=== PATIENT | female | born 1975 | race Two or more races ===

== ENCOUNTER 2017-11-18 20:23 | Emergency (ER) | payer SELFPAY ==
[2017-11-18 20:42] VITALS: BP 131/81
--- NOTE | 2017-11-18 20:56 | ER Document Report ---
ED General - General Chief Complaint: Cough Stated Complaint: COUGH Time Seen by Provider: 11/18/17 20:36 Notes: 42-year-old female presents emergency department stating that she was diagnosed with pneumonia on and started on azithromycin as well as albuterol breathing treatments every 6 hours. Patient states that despite these interventions she has had a persistent dry cough since then. Patient feels like she needs to cough something up but it is just not coming up. Denies posttussive emesis but admits to feeling nauseated after coughing. Denies fevers, denies chest pain, denies shortness of breath except when she gets into a coughing spell. Has not tried any cough suppressants but has tried guaifenesin. - Related Data Allergies/Adverse Reactions: codeine [Codeine] Allergy (Unknown, Verified 08/13/13 12:46) Past Medical History - General Information source: Patient - Social History Smoking Status: Never Smoker Chew tobacco use (# tins/day): No Frequency of alcohol use: Rare Drug Abuse: None Lives with: Family Family History: Reviewed & Not Pertinent Patient has suicidal ideation: No Patient has homicidal ideation: No - Past Medical History Cardiac Medical History: Reports: Hx Hypercholesterolemia, Hx Pulmonary Embolism Endocrine Medical History: Reports: Hx Hypothyroidism Renal/ Medical History: Reports: Hx Kidney Stones. Denies: Hx Peritoneal Dialysis Past Surgical History: Reports: Hx Section, Hx Gynecologic Surgery - lap for endometriosis - Immunizations Hx Diphtheria, Pertussis, Tetanus Vaccination: No Review of Systems - Review of Systems Constitutional: No symptoms reported EENT: No symptoms reported Cardiovascular: No symptoms reported Respiratory: See HPI Gastrointestinal: See HPI, Nausea -: Yes All other systems reviewed and negative Physical Exam - Vital signs Vitals: Temp Pulse Resp BP Pulse Ox 98.3 F 98 20 131/81 H 97 11/18/17 20:40 11/18/17 20:40 11/18/17 20:40 11/18/17 20:40 11/18/17 20:40 Interpretation: Normal - Notes Notes: GENERAL: Alert, interacts well. No acute distress. HEAD: Normocephalic, atraumatic EYES: Pupils equal, round and reactive to light, extraocular movements intact. ENT: Oral mucosa moist, tongue midline. NECK: Full range of motion, supple, trachea midline. LUNGS: Clear to auscultation bilaterally, no wheezes, rales or rhonchi, no respiratory distress. Dry cough HEART: Regular rate and rhythm, no murmurs, gallops, rubs. EXTREMITIES: Moves all 4 extremities spontaneously. No cyanosis. NEUROLOGICAL: Alert and oriented x3, normal speech. PSYCH: Normal mood, normal affect. SKIN: Warm, Dry, normal turgor, no rashes or lesions noted. Course - Re-evaluation Re-evalutation: 11/18/17 21:02 No chest pain, no posttussive emesis, already on appropriate antibiotics, already taking breathing treatments, no wheezing, no indication for steroids. Patient will be treated with Tessalon Perles and Hycodan syrup. Discharged home. - Vital Signs Vital signs: Temp Pulse Resp BP Pulse Ox 98.3 F 98 20 131/81 H 97 11/18/17 20:40 11/18/17 20:40 11/18/17 20:40 11/18/17 20:40 11/18/17 20:40 Discharge - Discharge Clinical Impression: Pneumonia Qualifiers: Pneumonia type: due to unspecified organism Laterality: unspecified laterality Lung location: unspecified part of lung Qualified Code(s): J18.9 - Pneumonia, unspecified organism Condition: Stable Disposition: HOME, SELF-CARE Additional Instructions: Please use the Tessalon Perles and the Hycodan syrup as directed. Please continue using the albuterol breathing treatments as directed. Please return to the emergency department for increasing cough, increasing fever or any new or concerning symptoms. Prescriptions: Hydrocodone Bit/Homatropine [Hycodan Syrup 5-1.5 mg/5 ml Ud Cup] 5 ml PO Q4HP PRN #120 ml PRN Reason: Benzonatate [Tessalon Perles 100 mg Capsule] 100 mg PO Q8HP PRN #40 capsule PRN Reason: Referrals: NALINI SINGH MD [ACTIVE STAFF] - Follow up as needed
== END 2017-11-18 21:05 | disposition home or self-care (01) ==
LOC: ER 20:23
DX: J18.9 Pneumonia, unspecified organism (principal); R05 Cough; R11.0 Nausea; Z88.5 Allergy status to narcotic agent; Z86.711 Personal history of pulmonary embolism
CPT/HCPCS: 99283

== ENCOUNTER → 2018-06-27 | Outpatient (CLI) | payer OTHER ==
--- NOTE | 2018-06-27 10:56 | RADIOLOGY REPORT (SQ) ---
EXAM DESCRIPTION: U/S SPINAL CANAL COMPLETED DATE/TIME: 06/27/2018 10:26 am REASON FOR STUDY: MASS OF SUBCUTANEOUS TISSUE R22.9 LOCALIZED SWELLING, MASS AND LUMP, UNSPECIFIED COMPARISON: None. TECHNIQUE: Dynamic and static grayscale images acquired of the localized site of clinical concern an d recorded on PACS. Additional selected color Doppler and spectral images recorded. SITE OF CONCERN: Left lower back. LIMITATIONS: None. FINDINGS: Heterogenous irregular complex fluid collection measuring 1.0 x 1.5 cm. IMPRESSION: IRREGULAR COMPLEX FLUID COLLECTION IN THE SOFT TISSUES. CONCERNING FOR INFECTIOUS PROCE SS AND POSSIBLE DEVELOPING ABSCESS. TECHNICAL DOCUMENTATION: JOB ID: [id number] [employer]- All Rights Reserved Reading location - IP/workstation name: [email or web address]
== END ==
LOC: RAD 09:19
PROVIDERS: ATTEND Physician Assistant
DX: R22.9 Localized swelling, mass and lump, unspecified (principal)
CPT/HCPCS: 76800

== ENCOUNTER 2018-10-24 05:11 | Inpatient (IN) | payer OTHER ==
[2018-10-17 11:51] LABS: HEMOGLOBIN 13.3 g/dL (12.0-15.5); MEAN CORPUSCULAR HEMOGLOBIN 30.6 pg (27.0-33.4); MEAN CORPUSCULAR VOLUME 87 fl (80-97); PLATELET COUNT 392 10^3/uL (150-450); RED BLOOD COUNT 4.35 10^6/uL (3.72-5.28); RED CELL DISTRIBUTION WIDTH 13.6 % (11.5-14.0)
--- NOTE | 2018-10-17 12:12 | RADIOLOGY REPORT (SQ) ---
EXAM DESCRIPTION: CHEST PA/LATERAL COMPLETED DATE/TIME: 10/17/2018 11:55 am REASON FOR STUDY: PRE-OP COMPARISON: None. EXAM PARAMETERS: NUMBER OF VIEWS: two views TECHNIQUE: Digital Frontal and Lateral radiographic views of the chest acquired. RADIATION DOSE: NA LIMITATIONS: none FINDINGS: LUNGS AND PLEURA: No opacities, masses or pneumothorax. No pleural effusion. MEDIASTINUM AND HILAR STRUCTURES: No masses or contour abnormalities. HEART AND VASCULAR STRUCTURES: Heart normal size. No evidence for failure. BONES: No acute findings. HARDWARE: None in the chest. OTHER: No other significant finding. IMPRESSION: NO SIGNIFICANT RADIOGRAPHIC FINDING IN THE CHEST. TECHNICAL DOCUMENTATION: JOB ID: [id number] [employer]- All Rights Reserved Reading location - IP/workstation name: [email or web address]
[2018-10-17 12:15] LABS: ANION GAP 10 (5-19); BLOOD UREA NITROGEN 15 mg/dL (7-20); CALCIUM 9.3 mg/dL (8.4-10.2); CARBON DIOXIDE 25 mmol/L (22-30); CHLORIDE 107 mmol/L (98-107); GLUCOSE 94 mg/dL (75-110); POTASSIUM 4.3 mmol/L (3.6-5.0); SODIUM 141.7 mmol/L (137-145)
--- NOTE | 2018-10-17 13:01 | EKG REPORT ---
SEVERITY:- ABNORMAL ECG - SINUS RHYTHM NONSPECIFIC ST-T CHANGES- INFERIOR LEADS : Confirmed by: Maikel Echeverria MD 17-Oct-2018 13:00:53
[~2018-10-24 05:11] MED LIST: CEFAZOLIN 1 GM/D5W RTU 1 GM/50 ML RTUPB IV PRN; LACTATED RINGERS 1000 ML IV PRN; LIDOCAINE 0.5% INJ-PF (5 MG/ML) 50 ML SDV SUBCUT PRN
[2018-10-24] MEDS ORDERED: CEFAZOLIN 1 GM/D5W RTU 1 GM/50 ML RTUPB IV ONE (05:25)
[2018-10-24 06:53] LABS: APPEARANCE,URINE SLIGHTLY-CLOUDY; BILIRUBIN,URINE NEGATIVE (NEGATIVE); COLOR,URINE YELLOW; GLUCOSE, URINE NEGATIVE (NEGATIVE); KETONES,URINE NEGATIVE (NEGATIVE); LEUKOCYTE ESTERASE,URINE NEGATIVE (NEGATIVE); NITRITE,URINE NEGATIVE (NEGATIVE); PROTEIN,URINE NEGATIVE (NEGATIVE); URINE SPECIFIC GRAVITY 1.026; UROBILINOGEN,URINE NEGATIVE mg/dL (<2.0)
[2018-10-24] MEDS ORDERED: BUPIVACAINE INJ/PF LIPOSOME/PF 266 MG/20 ML SDV ONE (07:00)
[2018-10-24] MEDS ORDERED: ACETAMINOPHEN 1,000 MG/100 ML RTUPB IV ONE (07:05)
[2018-10-24] MEDS ORDERED: MIDAZOLAM 2 MG/2 ML INJ ONE (07:05)
[2018-10-24] MEDS ORDERED: PROPOFOL INJ 200 MG/20 ML VIAL IV ONE (07:05)
[2018-10-24] MEDS ORDERED: FENTANYL CITRATE INJ/PF 250 MCG/5 ML AMPULE ONE (07:05)
[2018-10-24] MEDS ORDERED: DIPHENHYDRAMINE HCL 50 MG/ML VIAL IV PRN (07:38)
[2018-10-24] MEDS ORDERED: FENTANYL CITRATE INJ/PF 100 MCG/2 ML AMPUL IV PRN ×3 (07:38)
[2018-10-24] MEDS ORDERED: PROMETHAZINE HCL INJ 25 MG/1 ML VIAL IV PRN ×2 (07:38)
[2018-10-24] MEDS ORDERED: MEPERIDINE HCL/PF INJ 25 MG/1 ML DISP.SYRIN IV PRN (07:38)
[2018-10-24] MEDS ORDERED: GLYCOPYRROLATE 1 MG/5 ML SYRINGE ONE (08:07)
[2018-10-24] MEDS ORDERED: NEOSTIGMINE METHYLSULFATE 10 MG/10 ML VIAL ONE (08:07)
[2018-10-24] MEDS ORDERED: KETOROLAC TROMETHAMINE 60 MG/2 ML SDV ONE (08:07)
[2018-10-24] MEDS ORDERED: ROCURONIUM BROMIDE INJ 50 MG/5 ML VIAL IV ONE (08:07)
[2018-10-24] MEDS ORDERED: ONDANSETRON HCL INJ/PF 4 MG/2 ML SDV ONE ×2 (08:07→10:05)
[2018-10-24] MEDS ORDERED: SUCCINYLCHOLINE CHLORIDE INJ 200 MG/10 ML VIAL ONE (08:07)
[2018-10-24] MEDS ORDERED: DEXAMETHASONE SOD PHOSPHATE INJ 4 MG/1 ML VIAL ONE (08:07)
[2018-10-24] MEDS ORDERED: MORPHINE SULFATE 10 MG/ML INJ INJ PRN (09:13)
[2018-10-24] MEDS ORDERED: MORPHINE SULFATE 10 MG/ML INJ IM PRN (09:14)
[2018-10-24] MEDS ORDERED: PROMETHAZINE HCL INJ 25 MG/1 ML VIAL IM PRN (09:15)
--- NOTE | 2018-10-24 09:33 | OPERATIVE REPORT E ---
Operative Report NAME: LISA VIDES : 1975 AGE: 43Y DATE OF SURGERY: 10/24/2018 ROOM: OR PREOPERATIVE DIAGNOSIS: Uterine leiomyoma. POSTOPERATIVE DIAGNOSIS: Uterine leiomyoma. OPERATION: Total abdominal hysterectomy and bilateral salpingectomy. SURGEON: NICHOLAS VELASQUEZ M.D. ANESTHESIA: General endotracheal and Exparel postop. COMPLICATIONS: None. ESTIMATED BLOOD LOSS: Less than 100 mL. FINDINGS: Small uterus. Approximately 3 cm fibroid present. Normal tubes and ovaries are appreciated. Due to the previous presence of an Essure the tubes were removed. INDICATIONS FOR PROCEDURE: The patient had symptomatic uterine leiomyoma and desired attempt at definitive therapy. Laparoscopic approach was contraindicated due to the lack of ability to see her cervix vaginally due to previous . The options were discussed with the patient and she opted to have an abdominal procedure. Usual risks of bleeding, infection, anesthesia, and damage to organs and tissues was discussed with the patient who understood. PROCEDURE: The patient was taken to the operating room and placed in supine position. After adequate anesthesia was ascertained she was prepped and draped in the usual manner for an abdominal hysterectomy. Through a Pfannenstiel-type incision, subcutaneous fat and fascia, the peritoneum was entered without difficulty. The bladder had been drained under sterile technique. EUA was performed and surgical time out performed. The peritoneum was entered without difficulty. Abdominal contents were packed out of the pelvis. The parietal peritoneum *------* self-retaining retractor was placed. Using the LigaSure Advance device the round ligaments were cauterized and held. The tubes were removed from the ovaries and the utero-ovarian ligaments were cauterized at the level of the uterine vessels bilaterally. At this point we switched to suture ligation and careful advancement of bladder throughout. At the level of the cervix the uterus was amputated and handed off the operative field. Good hemostasis was noted to inspection. The vaginal stump was then closed with interrupted #1 chromic catgut. The wound was noted to be dry. The rectus fascia was closed with double-stranded PDS suture. Exparel was placed. Subcu stitches were placed with plain gut. The patient was taken to the recovery room in stable condition. All sponge and needle counts were correct. DICTATING PHYSICIAN: NICHOLAS VELASQUEZ M.D. [id number] PHY#: [id number] ID: [id number] JOB#: [id number] ACCT: [id number] cc:NICHOLAS VELASQUEZ M.D. >
[2018-10-24] MEDS: MORPHINE SULFATE 10 MG/ML INJ INJ PRN ×2 (12:10→15:20)
[2018-10-24] MEDS: CEFAZOLIN 1 GM/D5W RTU 1 GM/50 ML RTUPB IV SCH ×2 (12:19→18:04)
[2018-10-24] MEDS: OXYCODONE-ACETAMINOPHEN 5-325 MG TABLET PO PRN (18:07)
[2018-10-24] MEDS: IBUPROFEN 800 MG TABLET PO SCH ×2 (20:51→22:04)
[2018-10-24] MEDS ORDERED: ENOXAPARIN SODIUM INJ 40 MG/0.4 ML DISP.SYRIN SUBCUT SCH (22:00)
[2018-10-25] MEDS: OXYCODONE-ACETAMINOPHEN 5-325 MG TABLET PO PRN ×2 (00:36→11:23)
[2018-10-25] MEDS: IBUPROFEN 800 MG TABLET PO SCH ×2 (05:42→13:27)
[2018-10-25 06:26] LABS: HEMATOCRIT 34.2 % (36.0-47.0); HEMOGLOBIN 11.6 g/dL (12.0-15.5); MEAN CORPUSCULAR HEMOGLOBIN 29.7 pg (27.0-33.4); MEAN CORPUSCULAR HGB CONC 33.8 g/dL (32.0-36.0); MEAN CORPUSCULAR VOLUME 88 fl (80-97); PLATELET COUNT 390 10^3/uL (150-450); RED BLOOD COUNT 3.89 10^6/uL (3.72-5.28); RED CELL DISTRIBUTION WIDTH 13.7 % (11.5-14.0); WHITE BLOOD COUNT 11.3 10^3/uL (4.0-10.5)
[2018-10-25 12:49] VITALS: BP 115/71
== END 2018-10-25 14:15 | disposition home or self-care (01) | DRG 743 ==
LOC: INOR 05:11 → 2S 11:00
PROVIDERS: ADMIT Specialist; ATTEND Specialist
PROC: 0UT70ZZ Resection of Bilateral Fallopian Tubes, Open Approach (ICD-10-PCS; 2018-10-24)
PROC: 0UT90ZZ Resection of Uterus, Open Approach (ICD-10-PCS; principal; 2018-10-24 07:15)
DX: D25.1 Intramural leiomyoma of uterus (principal)
CPT/HCPCS: 36415; 71046; 80048; 81001; 81025; 85027; 86850; 86900; 86901; 88307; 93005; 93010; 94799; C9290; J0131; J0330; J0690; J1100; J1650; J1885; J2250; J2270; J2405; J2550; J2704; J3010; J3490

== ENCOUNTER 2018-10-28 15:53 | Emergency (ER) | payer OTHER ==
--- NOTE | 2018-10-28 16:12 | ER Document Report ---
ED Medical Screen (RME) - General Chief Complaint: Incision Problem Stated Complaint: POST OP PROBLEM Time Seen by Provider: 10/28/18 16:11 Primary Care Provider: ED STEWART MD [Primary Care Provider] - Follow up as needed Mode of Arrival: Ambulatory Information source: Patient TRAVEL OUTSIDE OF THE [place] IN LAST 30 DAYS: No - HPI Patient complains to provider of: post-op issue Onset: This morning - pt is s/p hysterectomy last week at [facility] -- incision has opened up earllier today. Bleeding controlled - Related Data Allergies/Adverse Reactions: codeine [Codeine] Allergy (Unknown, Verified 10/24/18 05:45) Past Medical History - Past Medical History Cardiac Medical History: Reports: Hx Hypercholesterolemia, Hx Pulmonary Embolism - TREATED WITH MEDICATION 2005 Denies: Hx Atrial Fibrillation, Hx Congestive Heart Failure, Hx Coronary Artery Disease, Hx Heart Attack, Hx Hypertension, Hx Peripheral Vascular Disease, Hx Heart Murmur Pulmonary Medical History: Denies: Hx Asthma, Hx Bronchitis, Hx COPD, Hx Pneumonia, Hx Respiratory Failure, Hx Sleep Apnea, Hx Tuberculosis Neurological Medical History: Endocrine Medical History: Reports: Hx Hypothyroidism. Denies: Hx Graves' Disease, Hx Hyperthyroidism Renal/ Medical History: Malignancy Medical History: Denies: Hx Lung Cancer Musculoskeltal Medical History: Past Surgical History: Reports: Hx Section, Hx Gynecologic Surgery - lap for endometriosis. Denies: Hx Appendectomy, Hx Bowel Surgery, Hx Cholecystectomy, Hx Coronary Artery Bypass Graft, Hx Gastric Bypass Surgery, Hx Herniorrhaphy, Hx Hysterectomy, Hx Mastectomy, Hx Pacemaker, Hx Tonsillectomy, Hx Tubal Ligation - Immunizations Hx Diphtheria, Pertussis, Tetanus Vaccination: No History of Influenza Vaccine for 05/2017 - 10/2017 Season: No Physical Exam - Vital signs Vitals: Temp Pulse Resp BP Pulse Ox 98.9 F 109 H 20 126/84 H 96 10/28/18 16:03 10/28/18 16:03 10/28/18 16:03 10/28/18 16:03 10/28/18 16:03 Course - Vital Signs Vital signs: Temp Pulse Resp BP Pulse Ox 98.9 F 109 H 20 126/84 H 96 10/28/18 16:03 10/28/18 16:03 10/28/18 16:03 10/28/18 16:03 10/28/18 16:03 Doctor's Discharge - Discharge Referrals: ED STEWART MD [Primary Care Provider] - Follow up as needed
--- NOTE | 2018-10-28 18:53 | ER Document Report ---
ED General - General Chief Complaint: Incision Problem Stated Complaint: POST OP PROBLEM Time Seen by Provider: 10/28/18 16:11 Primary Care Provider: ED STEWART MD [Primary Care Provider] - Follow up as needed Mode of Arrival: Ambulatory Information source: Patient TRAVEL OUTSIDE OF THE [place] IN LAST 30 DAYS: No - HPI Patient complains to provider of: Postoperative complication Onset: Other - 4 days ago Onset/Duration: Gradual Quality of pain: No pain Severity: None Pain Level: 0 Context: Recent abdominal hysterectomy Associated symptoms: None Exacerbated by: Denies Relieved by: Denies Similar symptoms previously: No Recently seen / treated by doctor: No Notes: Patient is a 43-year-old female who had abdominal hysterectomy 4 days ago. Concerned that the left side of the incision is starting to open up the past couple of days. No fevers or chills. No drainage. Feeling well otherwise. Pain is well controlled. - Related Data Allergies/Adverse Reactions: codeine [Codeine] Allergy (Unknown, Verified 10/24/18 05:45) Past Medical History - General Information source: Patient - Social History Smoking Status: Never Smoker Frequency of alcohol use: Occasional Drug Abuse: None Family History: Reviewed & Not Pertinent Patient has suicidal ideation: No Patient has homicidal ideation: No - Past Medical History Cardiac Medical History: Reports: Hx Hypercholesterolemia, Hx Pulmonary Embolism - TREATED WITH MEDICATION 2005 Denies: Hx Atrial Fibrillation, Hx Congestive Heart Failure, Hx Coronary Artery Disease, Hx Heart Attack, Hx Hypertension, Hx Peripheral Vascular Disease, Hx Heart Murmur Pulmonary Medical History: Denies: Hx Asthma, Hx Bronchitis, Hx COPD, Hx Pneumonia, Hx Respiratory Failure, Hx Sleep Apnea, Hx Tuberculosis Neurological Medical History: Endocrine Medical History: Reports: Hx Hypothyroidism. Denies: Hx Graves' Disease, Hx Hyperthyroidism Renal/ Medical History: Malignancy Medical History: Denies: Hx Lung Cancer Musculoskeletal Medical History: Past Surgical History: Reports: Hx Section, Hx Gynecologic Surgery - lap for endometriosis. Denies: Hx Appendectomy, Hx Bowel Surgery, Hx Cholecystectomy, Hx Coronary Artery Bypass Graft, Hx Gastric Bypass Surgery, Hx Herniorrhaphy, Hx Hysterectomy, Hx Mastectomy, Hx Pacemaker, Hx Tonsillectomy, Hx Tubal Ligation - Immunizations Hx Diphtheria, Pertussis, Tetanus Vaccination: No Review of Systems - Review of Systems Notes: Constitutional: No fevers. No chills. EENT: No eye redness. No eye pain. No ear pain. No sore throat. Cardiovascular: No chest pain. No palpitations. Respiratory: No cough. No shortness of breath. No respiratory distress. Gastrointestinal: Positive transverse low abdominal incision approximated with mason Genitourinary: Atraumatic. No lesions. No pain. No discharge. Musculoskeletal: Atraumatic. No swelling. No deformities. Skin: No rash or lesions. Lymphatic: No swollen lymph nodes. Neurologic: No headache. No syncope. Psychiatric: No suicidal or homicidal ideation. Physical Exam - Vital signs Vitals: Temp Pulse Resp BP Pulse Ox 98.9 F 109 H 20 126/84 H 96 10/28/18 16:03 10/28/18 16:03 10/28/18 16:03 10/28/18 16:03 10/28/18 16:03 - Notes Notes: General: Well-developed, well-nourished. In no acute distress. Non-toxic appearing. Cardiac: Well-perfused. Regular rate and rhythm. No murmurs, rubs, or gallops. Pulmonary: No respiratory distress. No cyanosis. Bilateral lung fiels are clear to auscultation. Abdominal: Lower abdominal transverse incision with mason in place. There are some areas on the left side of the incision which are a little bit open and do not appear to be well approximated. There is no erythema. No drainage. No cellulitis or streaking. no Foul odor. HEENT: Head is atraumatic. Conjunctivae not reddened. No tearing. PERRL. EOMI. Orbits atraumatic. No periorbital swelling or erythema. Oropharynx is without erythema, swelling, or exudates. Neck: Supple. No adenopathy. No meningismus. Dermatologic: Warm with good turgor. No rash. Atraumatic. Chest: Atraumatic. No chest wall tenderness to palpation. Musculoskeletal: Moves all extremities well. No range of motion deficits. no muscular or joint tenderness. No paraspinal muscle tenderness. no midline spinal tenderness or step-off. Genitourinary: Examination deferred Neurologic: No gross neurologic deficits. Psychiatric: Normal mood. Course - Re-evaluation Re-evalutation: 10/28/18 18:51 Spoke to patient's lipstick molder Dr. Salguero and he asked that we put some Steri-Strips on there and have her follow-up in the office tomorrow - Vital Signs Vital signs: Temp Pulse Resp BP Pulse Ox 98.9 F 109 H 20 126/84 H 96 10/28/18 16:03 10/28/18 16:03 10/28/18 16:03 10/28/18 16:03 10/28/18 16:03 - Consults [email or web address] Time consulted: 18:51 Reason for consultation: 10/28/18 18:51 wound opening Consulted provider: follow-up in office Discharge - Discharge Clinical Impression: Postoperative external wound disruption Qualifiers: Encounter type: initial encounter Qualified Code(s): T81.31XA - Disruption of external operation (surgical) wound, not elsewhere classified, initial encounter Condition: Good Disposition: HOME, SELF-CARE Instructions: Laceration Care ([facility]), Care of Steri-Strip Closure ([facility]) Additional Instructions: Your doctor wants to see you in the office tomorrow. Please call the office first thing in the morning to set up an appointment time. Referrals: ED STEWART MD [Primary Care Provider] - Follow up as needed NICHOLAS SALGUERO MD [EMERITUS] - Follow up tomorrow
[2018-10-28 19:23] VITALS: BP 122/80
== END 2018-10-28 19:22 | disposition home or self-care (01) ==
LOC: ER 15:53
DX: T81.31XA Disruption of external operation (surgical) wound, not elsewhere classified, initial encounter (principal); Y83.6 Removal of other organ (partial) (total) as the cause of abnormal reaction of the patient, or of later complication, without mention of misadventure at the time of the procedure; Z90.710 Acquired absence of both cervix and uterus; Z88.5 Allergy status to narcotic agent
CPT/HCPCS: 99283

== ENCOUNTER → 2019-01-30 | Outpatient (CLI) | payer OTHER ==
--- NOTE | 2019-01-30 13:11 | RADIOLOGY REPORT (SQ) ---
EXAM DESCRIPTION: CHEST PA/LATERAL COMPLETED DATE/TIME: 01/30/2019 12:54 pm REASON FOR STUDY: PRE-OP COMPARISON: 10/17/2018 EXAM PARAMETERS: NUMBER OF VIEWS: two views TECHNIQUE: Digital Frontal and Lateral radiographic views of the chest acquired. RADIATION DOSE: NA LIMITATIONS: none FINDINGS: LUNGS AND PLEURA: No opacities, masses or pneumothorax. No pleural effusion. MEDIASTINUM AND HILAR STRUCTURES: No masses or contour abnormalities. HEART AND VASCULAR STRUCTURES: Heart normal size. No evidence for failure. BONES: No acute findings. HARDWARE: None in the chest. OTHER: No other significant finding. IMPRESSION: NO SIGNIFICANT RADIOGRAPHIC FINDING IN THE CHEST. TECHNICAL DOCUMENTATION: JOB ID: [id number] [employer]- All Rights Reserved Reading location - IP/workstation name: [email or web address]
--- NOTE | 2019-01-30 13:20 | EKG REPORT ---
SEVERITY:- BORDERLINE ECG - SINUS RHYTHM SHORT ID INTERVAL, ACCELERATED AV CONDUCTION BORDERLINE T ABNORMALITIES, ANTERIOR LEADS : Confirmed by: Maikel Echeverria MD 30-Jan-2019 13:19:25
== END ==
LOC: OD 12:24
PROVIDERS: ATTEND Plastic Surgery
DX: Z01.812 Encounter for preprocedural laboratory examination (principal)
CPT/HCPCS: 71046; 93005; 93010

== ENCOUNTER → 2019-02-01 | Outpatient (CLI) | payer OTHER | LOC: WI 10:41 | PROVIDERS: ATTEND Plastic Surgery | DX: Z12.31 Encounter for screening mammogram for malignant neoplasm of breast (principal) | CPT/HCPCS: 77067 ==